=== PATIENT | male | born 1995 | race Caucasian/White ===

== ENCOUNTER 2017-12-16 22:03 | Emergency (ER) | payer SELFPAY ==
[~2017-12-16] VITALS: Ht 180.3 cm; Wt 83.9 kg
[2017-12-17] MEDS ORDERED: HYDROCODONE/ACETAMINOPHEN 5/325MG TABLET PO ONE (02:45)
[2017-12-17 02:48] VITALS: BP 123/70
[2017-12-17] MEDS ORDERED: ONDANSETRON 4MG ODT PO ONE (04:00)
== END 2017-12-17 04:39 | disposition home or self-care (01) ==
LOC: ER 22:03
DX: S00.03XA Contusion of scalp, initial encounter (principal); R07.81 Pleurodynia; M25.532 Pain in left wrist; M25.531 Pain in right wrist; F17.200 Nicotine dependence, unspecified, uncomplicated; F12.10 Cannabis abuse, uncomplicated; Y04.0XXA Assault by unarmed brawl or fight, initial encounter; Y93.89 Activity, other specified; Y92.89 Other specified places as the place of occurrence of the external cause; Y99.8 Other external cause status
CPT/HCPCS: 71045; 99283